=== PATIENT | female | born 1945 | race Caucasian/White ===

== ENCOUNTER 2024-04-27 17:48 | Outpatient (CLI) | payer MEDICARE, BC, SELFPAY | END 2024-04-27 17:49 | disposition home or self-care (01) | LOC: NFLDREF 05-04 07:33 | PROVIDERS: Visit Provider Nurse Practitioner | DX: R35.0 Frequency of micturition (principal); R39.15 Urgency of urination; K64.4 Residual hemorrhoidal skin tags; R30.0 Dysuria; G20.A1 Parkinson's disease without dyskinesia, without mention of fluctuations; F02.80 Dementia in other diseases classified elsewhere, unspecified severity, without behavioral disturbance, psychotic disturbance, mood disturbance, and anxiety | CPT/HCPCS: 87086 ==

== ENCOUNTER 2024-05-29 13:37 | Outpatient (CLI) | payer MEDICARE, BC, SELFPAY ==
--- OUTSIDE RECORDS SUMMARY | 2024-06-02 01:48 | XMS_ITS | Clinical Summary ---
Author Organization [facility] Address [place], [place] [address] Care Team Providers Care Machine Feller Name Role Phone Emmanuel Celis MD Unavailable Bonnie Enriquez DO Primary Care Provider Allergies Active Allergy Reactions Criticality Noted Date Comments Penicillins Rash 10/13/2007 Patient states sensitivity. Medications Medication Sig Dispensed Refills Start Date End Date Status MULTIVITAMIN TAB Take 1 Tablet by mouth once daily in the evening. Contains 0.4 mg of Folic Acid. 0 8 Active aspirin (ECOTRIN) 81 mg enteric coated tablet Take 81 mg by mouth once daily in the evening. Active acetaminophen (TYLENOL EXTRA STRGTH) 500 mg tabletIndications:L eft arm pain Take 2 Tablets (1,000 mg) by mouth every 6 hours if needed for Pain. Max acetaminophen dose: 4000mg in 24 hrs. 0 3 Active docosahexaenoic acid/epa (FISH OIL ORAL) Take 1 Tablet by mouth once daily. Active calcium carb/D3/magnesium/z inc (CALCIUM-MAGNESIUM- ZINC-VIT D ORAL) Take 1 Tablet by mouth once daily. Active simvastatin (ZOCOR) 20 mg tabletIndications:M ixed hyperlipidemia TAKE 1 TABLET (20 MG) BY MOUTH AT BEDTIME. 90 Tablet 3 4 Active sertraline (ZOLOFT) 50 mg tabletIndications:A nxiety,Memory difficulty Take 0.5 Tablets (25 mg) by mouth at bedtime. 45 Tablet 1 4 Active donepeziL (ARICEPT) 10 mg tabletIndications:Carmelina bryant neurocognitive disorder, due to frontotemporal lobar degeneration, without behavioral disturbance, mild (HC),Dementia in other diseases classified elsewhere, moderate, without behavioral disturbance, psychotic disturbance, mood disturbance, and anxiety (HC) Take 1.5 Tablets (15 mg) by mouth at bedtime. 135 Tablet 3 4 Active cephalexin (KEFLEX) 500 mg capsuleIndications: UTI (urinary tract infection), uncomplicated Take 1 Capsule (500 mg) by mouth two times daily for 7 days. 14 Capsule 4 06/05/20 24 Active oxybutynin XL (DITROPAN XL) 5 mg CR tabletIndications:O AB (overactive bladder) Take 1 Tablet (5 mg) by mouth once daily. 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 Sethi 12/18. Diagnosis is either normal variant vs. early toxic multinodular goiter. Recommends: yearly TSH and Free T4. Refer back if TSH falls to 0.01 or less; Free T4 rises to 1.8 or more. Encounter for medication monitoring 04/08/2011 History of thyroid cyst 09/28/2010 History of colon cancer 09/28/2010 Overview (09/28/2010): Resected 11/13. No chemo or radiation needed. Mixed hyperlipidemia 09/20/2009 Onychomycosis 09/03/2009 Pain in limb 11/14/2007 Resolved Problems Problem Noted Date Diagnosed Date Resolved Date Elevated blood sugar 09/20/2009 011 Encounters Date Type Department Care Team Description 05/30/2024 Telephone [facility] [address] [place] [address] Bonnie Enrqiuez DO Referral (HOSPICE CARE) 05/29/2024 2:16 PM CDT - 05/29/2024 6:58 PM CDT Emergency [facility] [address] [place] [address] Bridgette Ness MD Torgersen, Michelle Denise, WAYLON Dementia, unspecified dementia severity, unspecified dementia type, unspecified whether behavioral, psychotic, or mood disturbance or anxiety (HC) (Primary Dx); Fall, initial encounter; Abrasion; Urinary frequency Discharge Disposition: Home Self Care 05/29/2024 11:15 AM CDT Ancillary Procedure [facility] [address] [place] [address] Arrived 05/29/2024 11:00 AM CDT Ancillary Procedure [facility] [address] [place] [address] Arrived 05/29/2024 9:50 AM CDT Office Visit [facility] [address] [place] [address] Blanche Prescott PA Fall (Fell while getting up from toilet around 5am-hit her head on the corner of a cabinet-was also put on colace on Wednesday and there was diarrhea all over the floor); Lab 05/29/2024 Travel 05/26/2024 10:50 AM CDT Office Visit [facility] [address] [place] [address] Bonnie Enriquez, Follow Up (Urgent care 04/27/2024 for urinary issues and sleep); Throat Problem (Swallowing issues); Immunization/Inject ion 05/26/2024 Travel 05/05/2024 1:30 PM CDT Nurse/Clinic Staff Only [address] [place] [phone] Urinary Problem; Nurse/Clinic Staff Only 05/05/2024 Travel 04/27/[address] [place] [address] Bonnie Enriquez DO Questions (Patient care) from Last 3 Months Immunizations Name Administration Dates Next Due AMB Influenza, IIV3 (Age >=3 years)(Flu Clinic Only) 06/27/2013,07/04/2010,07/04/2008 Amb Influenza, Inact (High-d ose) (Flu Clinic Only) 06/27/2014 COVID-19 VACCINE SPIKEVAX (M ODERNA 50MCG/0.5ML) 12YO+ PFS 05/26/2024 COVID-19 vaccine (Pfizer-Bio NTech 30mcg/0.3mL) PF, MDV 11/30/2020,11/09/2020 Influenza A (H1N1), Inactiva rony (Age >=3 Years) 08/21/2009 Influenza Virus, Unspecified 05/23/2020 Influenza, High-dose Inactivated 023,06/17/2019,05/02/2018,2016,06/15/2016,06/27/2014 Influenza, High-dose Quadriv alent Inactivated 06/03/2022 Influenza, IIV3 (Age 6-35 mos) 07/24/2011,2008 Influenza, IIV3 (Age >=3 years) 05/13/20 15,06/27/2013,07/24/2011,2009,08/21/2009,07/04/2008,06/27/2003 Influenza, Inactivated AIIV4 (Age 65+ Years) Preserv Free 06/12/2021 Influenza, Inactivated IIV3 (Age 65+ Years) Preserv Free 05/26/2024 Pneumococcal Poly,23-Valent (Pneumovax) 12/25/2011 Pneumococcal conj 13-Valent (Prevnar 13) 03/03/2016 Tdap 05/11/2017,12/15/2016,07/22/2007 Zoster (Zostavax-ZVL, live) 07/24/2011 Family History Medical History Relation Name Comments Heart attack Brother Heart Disease Father CHF Alzheimer's disease Sister 1 Cancer-colon Sister 1 Cancer-breast Sister 2 Bipolar disorder Sister 3 Anesthesia Problem No Family History Relation Name Status Comments Brother Father (Age 78) CHF Mother (Age 45) accidental fire Sister 1 Sister 2 Sister 3 Social History Tobacco Use Types Packs/Day Years Used Date Smoking Tobacco: Never Smokeless Tobacco: Never Tobacco Cessation:Counseling Given: Yes Alcohol Use Standard Drinks/Week Comments Not Currently 0 (1 standard drink = 0.6 oz pur e alcohol) rare PHQ-2 Answer Date Recorded PHQ-2 TOTAL SCORE 0 10/11/2023 Social Connections Answer Date Recorded Frequency of Communication with Friends and Fami ly 0 08/12/2023 Financial Resource Strain Answer Date R ecorded Difficulty of Paying Living Expenses 3 08/12/2023 Difficulty of Paying Living Expenses Not on file 08/12/2023 Food Insecurity Answer Date Recorded Worried About Running Out of Food in the Last Ye ar 1 08/12/2023 Transportation Needs Answer Date Record ed Lack of Transportation (Medical) 1 08/12/2023 Housing Stability Answer Date Recorded Unable to Pay for Housing in the Last Year 1 08/12/2023 Sex and Gender Information Value Date Recorded Sex Assigned at Not on file Gender Identity Not on file Sexual Orientation Not on file Obstetrics History Last Filed Vital Signs Vital Sign Reading Time Taken Comments Blood Pressure 163/73 05/29/2024 5:30 PM CDT Pulse 59 05/29/2024 5:30 PM CDT Temperature 37.3 ??C (99.1 ??F) 05/29/2024 2:20 PM CD T Respiratory Rate 18 05/29/2024 5:30 PM CDT Oxygen Saturation 95% 05/29/2024 5:30 PM CDT Inhaled Oxygen Concentration - - Weight 46.6 kg (102 lb 11.2 oz) 05/29/2024 2:20 PM CDT Height 154.9 cm (5' 1) 05/29/2024 2:20 PM CDT Body Mass Index 19.4 05/29/2024 2:20 PM CDT Plan of Treatment Upcoming Encounters Date Type Department Care Team (Late st Contact Info) Description 06/05/2024 10:30 AM CDT Appointment [facility] [address] [facility] [place] [address] Ara Roach, CLINICAL TRIAL ASSOCIATE [address] [place] [address] Health Maintenance Due Date Last Done Comments Zoster (shingles) series for age 50+ (2 of 3) 2011 07/24/2011 RSV vaccine for adults or (1 - 1-dose 75+ series) 2021 BMI (ht and wt on same day) for age 18+ 10/11/2024 10/11/2023, 12/07/2022, 10/12/2022, Additional history exists Depression screening for age 12+ 10/11/2024 10/11/2023, 10/12/2022, 04/06/2022, Additional history exists Medicare Wellness for age 65+ 10/11/2024, 10/12/2022, 04/07/2021, Additional history exists Tetanus booster 05/11/2027 05/11/2017, 12/05, 07/22/2007 Fecal testing non-DNA (FIT,FOBT,iFOBT) for age 45-75 Discontinued 02/08/2014, 12/25/2011, 12/26/2007 Pneumococcal series for age 65+ Completed 03/03/2016, 03/03/2016, 12/25/2011 DEXA/DXA scan for age 65+ Completed 03/26/2017, 08/2008 Tdap Completed 05/11/2017, 12/05, 07/22/2007 Hepatitis C screening for ag e 18-79 Completed 04/07/2021 COVID-19 vaccine series Completed 05/26/20 24, 07/31/2023, 06/03/2022, Additional history exists Influenza for age 65+ Completed 05/26/2024 , 07/31/2023, 06/03/2022, Additional history exists Procedures Procedure Name Priority Date/Time Associated Diagnosis Comments BASIC METABOLIC PANEL STAT 05/29/2024 5:23 PM CDT CBC W PLT NO DIFF STAT 05/29/2024 5:[address] HEAD BRAIN WO STAT 05/29/2024 3:43 PM CDT URINE CULTURE ALEXANDRA 05/29/2024 3:29 PM CDT URINALYSIS MICROSCOPIC STAT 05/29/2024 3:29 PM CDT UA W/ SEDIMENT EXAM REFLEXED PER CRITERIA STAT 05/29/2024 3:29 PM CDT URINE CULTURE Routine 05/29/2024 1:22 PM CDT UTI (urinary tract infection), uncomplicated XR SHOULDER 3 VIEWS LEFT Routine 05/29/2024 11:25 AM CDT Injury of left shoulder, initial encounter XR RIBS LEFT AND PA CHEST MINIMUM 3 VIEWS Routine 05/29/2024 11:24 AM CDT Chest wall pain BASIC METABOLIC PANEL Routine 05/26/2024 1:18 PM CDT OAB (overactive bladder) ANTI HCV Routine 04/07/2021 12:01 PM CDT Need for hepatitis C screening test XR DXA BONE DENSITY 2 SITES AXIAL Routine 03/26/2017 2:15 PM CDT Menopause OCCULT BLOOD IFOBT STOOL Routine 02/08/2014 8:00 AM CDT Special screening for malignant neoplasms, colon from Last 3 Months or Most Recently Relevant to Health Maintenance Results * CBC W PLT NO DIFF (05/29/2024 5:23 PM CDT) WHITE BLOOD COUNT 5.6 4.5 - 11.0 thou/cu mm 05/29/2024 5:34 PM CDT [facility] RED BLOOD COUNT 4.30 4.00 - 5.20 mil/cu mm 05/29/2024 5:34 PM CDT [facility] HEMOGLOBIN 13.2 12.0 - 16.0 g/dL 05/29/2024 5:34 PM CDT [facility] HEMATOCRIT 38.5 33.0 - 51.0 % 05/29/2024 5:34 PM T [facility] MCV 90 80 - 100 fL 05/29/2024 5:34 PM CDT [facility] MCH 30.7 26.0 - 34.0 pg 05/29/2024 5:34 PM T [facility] MCHC 34.3 32.0 - 36.0 g/dL 05/29/2024 5:34 PM T [facility] RDW 13.2 11.5 - 15.5 % 05/29/2024 5:34 PM T [facility] PLATELET COUNT 162 140 - 440 thou/cu mm 05/29/2024 5:34 PM [facility] MPV 10.0 6.5 - 11.0 fL 05/29/2024 5:34 PM [facility] Blood BLOOD SPECIMEN / Unknown Butterfly / Unknown 05/29/2024 5:23 PM CDT 05/29/2024 5:30 PM CDT Bridgette Ness MD HEMATOLOGY [facility] [address] [place] [address] * BASIC METABOLIC PANEL (05/29/2024 5:23 PM CDT) Only the most recent of2 resultswithin the time period is included. SODIUM 144 136 - 145 mmol/L 05/29/2024 5:51 PM CDT [facility] POTASSIUM 3.5 3.5 - 5.1 mmol/L 05/29/2024 5:51 PM [facility] CHLORIDE 107 98 - 107 mmol/L 05/29/2024 5:51 PM CDT [facility] CO2,TOTAL 25 22 - 29 mmol/L 05/29/2024 5:51 PM CDT [facility] ANION GAP 12 5 - 18 05/29/2024 5:51 PM CDT [facility] GLUCOSE 93 70 - 99 mg/dL 05/29/2024 5:51 PM CDT [facility] CALCIUM 9.3 8.8 - 10.2 mg/dL 05/29/2024 5:51 PM CDT [facility] BUN 11 8 - 23 mg/dL 05/29/2024 5:51 PM CDT [facility] CREATININE 0.58 0.50 - 0.90 mg/dL 05/29/2024 5:51 PM T [facility] BUN/CREAT RATIO 19 10 - 20 5:51 PM CDT [facility] eGFR >90 >90 mL/min/1.7 3m2 05/29/2024 5:51 PM T [facility] Comment:As of 2021, eG FR is calculated by the CKD-EPI creatinine equation without race adjustment. ??eGFR can be influenced by muscle mass, exercise, and diet. ??The reported eGFR is an estimation only and is only applicable if the renal function is stable. Blood BLOOD SPECIMEN / Unknown Butterfly / Unknown 05/29/2024 5:23 PM CDT 05/29/2024 5:30 PM CDT Bridgette Ness MD CHEMISTRY [facility] [address] [place] [address] * CT HEAD BRAIN WO (05/29/2024 3:43 PM CDT) Anatomical Region Laterality Modality HEAD, BRAIN Computed Tomogra phy 05/29/2024 4:09 PM CDT Impressions 05/29/2024 4:09 PM CDT ?IMPRESSION:1. ??No CT evidence of acute cortical infarct. No acute intracranial hemorrhage. No other acute intracranial findings. Please note that all CT scans at this facility use dose modulation, iterative reconstruction, and/or weight-based dosing when appropriate to reduce radiation dose to as low as reasonably achievable. Dictated by Naveed Tabares MD @ 05/29/2024 4:09:46 PM (Electronically Signed) Narrative 05/29/2024 4:09 PM CDT For Patients: ??As a result of the Cures Act, medical imaging exams and procedure reports are released immediately into your electronic medical record. ??You may view this report before your referring provider. ??If you have questions, please contact your health care provider. INDICATION: Altered mental status. TECHNIQUE: CT of the head without contrast. Coronal and sagittal reformats are included. COMPARISON: Brain MRI from 06/05/2020. FINDINGS: No CT evidence of acute cortical infarct. No loss of sorensen white matter differentiation. No hyperdense vessels to suggest intracranial thrombus. No acute intracranial hemorrhage. No mass effect or midline shift. No hydrocephalus or extra-axial collections. Patchy hypoattenuation throughout the supratentorial white matter, typical for chronic microvascular ischemic change. Moderate generalized parenchymal volume loss with more advanced atrophy of the hippocampal formations. No acute osseous abnormalities. Mastoid air cells and paranasal sinuses are clear. A small left frontal scalp contusion. Procedure Note Naveed Tabares MD - 05/29/2024 For Patients: As a result of the Cures Act, medical imagingexams and procedure reports are released immediately into your electronicmedical record. You may view this report before your referring provider.If you have questions, please contact your health care provider. INDICATION: Altered mental status. TECHNIQUE: CT of the head without contrast. Coronal and sagittal reformats areincluded. COMPARISON: Brain MRI from 06/05/2020. FINDINGS: No CT evidence of acute cortical infarct. No loss of sorensen white matterdifferentiation. No hyperdense vessels to suggest intracranial thrombus.No acute intracranial hemorrhage. No mass effect or midline shift. Nohydrocephalus or extra-axial collections. Patchy hypoattenuationthroughout the supratentorial white matter, typical for chronicmicrovascular ischemic change. Moderate generalized parenchymal volumeloss with more advanced atrophy of the hippocampal formations. No acute osseous abnormalities. Mastoid air cells and paranasal sinusesare clear. A small left frontal scalp contusion. IMPRESSION: IMPRESSION:1. No CT evidence of acute cortical infarct. No acuteintracranial hemorrhage. No other acute intracranial findings. Please note that all CT scans at this facility use dose modulation,iterative reconstruction, and/or weight-based dosing when appropriate toreduce radiation dose to as low as reasonably achievable. Dictated by Naveed Tabares MD @ 05/29/2024 4:09:46 PM (Electronically Signed) Bridgette Ness MD CT * (ABNORMAL) URINALYSIS MICROSCOPIC (05/29/2024 3:29 PM CDT) Pathologist [facility] RBC 11-25(A) 0-2, None Seen /HPF 05/29/2024 3:40 PM CDT [facility] WBC 0-2 0-2, 3-5, None Seen /HPF 05/29/2024 3:40 PM CDT [facility] BACTERIA Many(A) None Seen, Rare, Few Bacteria/H PF 05/29/2024 3:40 PM CDT [facility] EPITHELIAL CELLS Few None Seen, Few Epi/HPF 05/29/2024 3:40 PM CDT [facility] Mucus Present 05/29/2024 3:40 PM CDT [facility] Urine URINE SPECIMEN / Unknown Non-Blood / Unknown 05/29/2024 3:29 PM CDT 05/29/2024 3:31 PM CDT Bridgette Ness MD URINE [facility] [address] [place] [id number] * URINE CULTURE (05/29/2024 3:29 PM CDT) Only the most recent of2 resultswithin the time period is included. CULTURE No growth (<1,000 CFU/mL) 05/30/2024 3:20 PM CDT [facility] Urine URINE SPECIMEN / Unknown Non-Blood / Unknown 05/29/2024 3:29 PM CDT 05/29/2024 3:31 PM CDT Bridgette Ness MD MICROBIOLOGY [facility] [address] [place] [address], [place] * (ABNORMAL) UA W/ SEDIMENT EXAM REFLEXED PER CRITERIA (05/29/2024 3:29 PM CDT) COLOR Yellow Yellow Color 05/29/2024 3:36 PM T [facility] CLARITY Clear Clear Clarity 05/29/2024 3:36 PM [facility] SPECIFIC GRAVITY,URINE 1.025 1.010, 1.015, 1.020, 1.025 05/29/2024 3:36 PM [facility] PH,URINE 6.0 6.0, 7.0, 8.0, 5.5, 6.5, 7.5, 8.5 05/29/2024 3:36 PM [facility] UROBILINOGEN, QUALITATIVE Normal Normal EU/dl 05/29/2024 3:36 PM [facility] PROTEIN, URINE Trace(A) Negative mg/dL 05/29/2024 3:36 PM [facility] GLUCOSE, URINE Negative Negative mg/dL 05/29/2024 3:36 PM [facility] KETONES,URINE Trace(A) Negative mg/dL 05/29/2024 3:36 PM [facility] BILIRUBIN,URI NE Negative Negative 05/29/2024 3:36 PM [facility] OCCULT BLOOD,URINE Moderate(A) Negative 05/29/2024 3:36 PM [facility] NITRITE Negative Negative 05/29/2024 3:36 PM [facility] LEUKOCYTE ESTERASE Negative Negative 05/29/2024 3:36 PM [facility] Urine URINE SPECIMEN / Unknown Non-Blood / Unknown 05/29/2024 3:29 PM CDT 05/29/2024 3:31 PM CDT Bridgette Ness MD URINE [facility] [address] [place] [address] * XR SHOULDER 3 VIEWS LEFT (05/29/2024 11:25 AM CDT) Anatomical Region Laterality Modality SHOULDERS, SHOULDER L Computed R adiography 05/29/2024 5:20 PM CDT Narrative 05/29/2024 5:20 PM CDT For Patients: ??As a result of the Cures Act, medical imaging exams and procedure reports are released immediately into your electronic medical record. ??You may view this report before your referring provider. ??If you have questions, please contact your health care provider. Indication: Trauma. Technique: Left shoulder, 3 views. Comparison: None. Findings: Bones: Diffuse demineralization of the visualized bones.. No acute fractures. Joint spaces: Unremarkable. Soft tissues: Unremarkable. Impression: No sign of acute injury. Dictated by Bee Orosco MD @ 05/29/2024 5:20:11 PM (Electronically Signed) Procedure Note Bee Orosco MD - 05/29/2024 For Patients: As a result of the Cures Act, medical imagingexams and procedure reports are released immediately into your electronicmedical record. You may view this report before your referring provider.If you have questions, please contact your health care provider. Indication: Trauma. Technique: Left shoulder, 3 views. Comparison: None. Findings: Bones: Diffuse demineralization of the visualized bones.. No acutefractures. Joint spaces: Unremarkable. Soft tissues: Unremarkable. Impression: No sign of acute injury. Dictated by Bee Orosco MD @ 05/29/2024 5:20:11 PM (Electronically Signed) Blanche Prescott PA GENERAL IMAGING * XR RIBS LEFT AND PA CHEST MINIMUM 3 VIEWS (05/29/2024 11:24 AM CDT) Anatomical Region Laterality Modality RIBS, RIBS L, CHEST Computed Rad iography 05/29/2024 5:05 PM CDT Impressions 05/29/2024 5:05 PM CDT Unremarkable chest and left ribs. Dictated by Bee Orosco MD @ 05/29/2024 5:05:56 PM (Electronically Signed) Narrative 05/29/2024 5:05 PM CDT For Patients: ??As a result of the Cures Act, medical imaging exams and procedure reports are released immediately into your electronic medical record. ??You may view this report before your referring provider. ??If you have questions, please contact your health care provider. INDICATION: Injury and pain. TECHNIQUE: Chest and left ribs 3 views. COMPARISON: None. FINDINGS: Cardiovascular and mediastinum: ??Heart size and vasculature are normal in caliber and appearance. ??Mediastinum is within normal limits. ?? Lungs and pleural spaces: ??Lungs are clear. ??No sign of infiltrate or mass. ??No sign of pleural effusion. ??No pneumothorax. ?? Bones and soft tissues: ??Detailed oblique images of the left ribs demonstrate no fractures or bone lesions. ? Procedure Note Bee Orosco MD - 05/29/2024 For Patients: As a result of the Cures Act, medical imagingexams and procedure reports are released immediately into your electronicmedical record. You may view this report before your referring provider.If you have questions, please contact your health care provider. INDICATION: Injury and pain. TECHNIQUE: Chest and left ribs 3 views. COMPARISON: None. FINDINGS: Cardiovascular and mediastinum: Heart size and vasculature are normal incaliber and appearance. Mediastinum is within normal limits. Lungs and pleural spaces: Lungs are clear. No sign of infiltrate ormass. No sign of pleural effusion. No pneumothorax. Bones and soft tissues: Detailed oblique images of the left ribsdemonstrate no fractures or bone lesions. IMPRESSION: Unremarkable chest and left ribs. Dictated by Bee Orosco MD @ 05/29/2024 5:05:56 PM (Electronically Signed) [facility] * ANTI HCV [68164.2] (04/07/2021 12:01 PM CDT) HEPATITIS C ANTIBODY Non-React mercy Non-React mercy 04/07/2021 8:03 PM CDT [facility] Comment:Antibodies to HCV no t detected; does not exclude the possibility of exposure to HCV. Blood BLOOD SPECIMEN / Unknown Venipuncture / Unknown 04/07/2021 12:01 PM CDT 04/07/2021 12:03 PM CDT Bonnie Enriquez DO SEND OUTS [facility] [address] [place] [address], [place] * (ABNORMAL) XR DXA BONE DENSITY 2 SITES AXIAL [[id number]] (03/26/2017 2:15 PM CDT) Anatomical Region Laterality Modality Spine, HIPS, HIPL, HIPR Bone Den sitometry Narrative 03/26/2017 7:26 PM CDT Please see scanned document for results of this study. Emile Bennett MD DEXA * OCCULT BLOOD IFOBT STOOL (02/08/2014 8:00 AM CDT) STOOL BLOOD ,IFOBT Negative Negative, Invalid 02/08/2014 9:[address] [facility] Stool specimen (specimen) STOOL SPECIMEN / Unknown Non-Blood / Unknown 02/08/2014 8:00 AM CDT 02/08/2014 9:44 AM CDT Emile Bennett MD LABORATORY [facility] [address] [place] [address], [place] [phone] from Last 3 Months or Most Recently Relevant to Health Maintenance Advance Directives Documents on File Type Date Recorded Patient Eyeglass Fitter Expl anation POLST 09/24/2023 2:57 PM POLST 09/20/2023 Healthcare Directive 02/26/2015 2:45 PM HE ALTHCARE DIRECTIVE, 08/18/2013 * DNR (Latest Code Status on File) Date Activated Date Inactivated Comments 08/12/2023 2:46 AM 08/13/2023 3:55 PM Question Answer Comments Code Status Discussion: Reviewed Preferences * Full Code Date Activated Date Inactivated Comments 08/12/2023 12:22 AM 08/12/2023 2:46 AM Question Answer Comments Code Status Discussion: Reviewed Preferences * Full Code Date Activated Date Inactivated Comments 02/18/2021 6:37 AM 02/18/2021 11:05 AM Question Answer Comments Code Status Discussion: Discussed Care Teams Machine Feller Relationship Specialty Start Date End Date Bonnie Enriquez DO [address] [place] [address] [place] [address] PCP - General Internal Medicine 12/30/17 Emmanuel Celis MD Oncology 02/12/14
--- OUTSIDE RECORDS SUMMARY | 2024-06-02 01:48 | XMS_ITS | Continuity of Care Document ---
Author Organization [email or web address] Address [address] [place] [address] Social History Not on File Plan of Treatment Not on file
== END 2024-05-29 13:38 | disposition home or self-care (01) ==
LOC: AMB 06-02 01:45
PROVIDERS: Visit Provider Student in an Organized Health Care Education/Training Program
DX: R52 Pain, unspecified (principal); R41.82 Altered mental status, unspecified
CPT/HCPCS: A0425; A0427